=== PATIENT | female | born 2000 | race Caucasian/White ===

== ENCOUNTER 2024-09-12 11:15 | Outpatient (CLI) | payer BC, SELFPAY | END 2024-09-12 11:16 | disposition home or self-care (01) | LOC: NFLDREF 09-14 12:01 | PROVIDERS: PCP Internal Medicine; Referring Provider Internal Medicine; Visit Provider Internal Medicine | DX: Z02.1 Encounter for pre-employment examination (principal); Z11.1 Encounter for screening for respiratory tuberculosis | CPT/HCPCS: 86480 ==